=== PATIENT | male | born 1950 | race Caucasian/White ===

== ENCOUNTER 2018-02-28 05:55 | Day surgery (SDC) | payer MEDICARE, OTHER ==
[2018-02-27 14:27] LABS: HEMATOCRIT 46.4 % (42.0-54.0); HEMOGLOBIN 16.6 g/dL (13.5-17.5); MCH 31.7 pg (26.0-34.0); MCHC 35.8 g/dL (31.0-37.0); MCV 88.7 fL (80.0-100.0); MEAN PLATELET VOLUME 10.4 fL (7.4-10.4); RBC 5.23 10x6/uL (4.20-6.10); RDW 12.5 % (11.5-14.5); WBC 7.7 10x3/uL (4.8-10.8)
[2018-02-27 14:36] LABS: CALC OSMOLALITY 280 mosm/kg (275-300); CALCIUM 9.3 mg/dL (8.5-10.1); CHLORIDE - SERUM 104 mmol/L (98-107); GLUCOSE 107 mg/dL (74-106); POTASSIUM - SERUM 3.5 mmol/L (3.5-5.1); SODIUM 140 mmol/L (136-145); UREA NITROGEN 19 mg/dL (7-18); eGFR NON AFRICAN AMERICAN 79 mL/min (90-120)
[~2018-02-28] VITALS: Ht 185.4 cm; Wt 96.2 kg
--- NOTE | ~2018-02-28 | OP ---
PATIENT NAME: ALEKSANDER ENNIS MEDICAL RECORD: [id number] :50 LOCATION:[facility] ADMISSION DATE: SURGEON: JESUS STALLWORTH MD DATE OF OPERATION: 02/28/2018 PREOPERATIVE DIAGNOSES: 1. Left inguinal hernia. 2. Hypertension. 3. Benign prostatic hypertrophy. 4. Hyperlipidemia. 5. Nicotine dependence. POSTOPERATIVE DIAGNOSES: 1. Left inguinal hernia. 2. Hypertension. 3. Benign prostatic hypertrophy. 4. Hyperlipidemia. 5. Nicotine dependence. PROCEDURE: Left inguinal hernia repair with medium PHS mesh. SURGEON: Jesus Stallworth MD REPORT OF PROCEDURE: The patient's left groin was prepped and draped in sterile fashion. An oblique incision was made above the inguinal ligament. Electrocautery was used to dissect through subcutaneous tissues to the external oblique fascia. This fascia was opened up to the external ring using electrocautery. The ilioinguinal nerve was found and high ligated. We then came around the spermatic cord and placed a [place] around it. The patient had a large cord lipoma, which was dissected free from the spermatic cord and high ligated with a 2-0 silk. The patient also had an indirect hernia defect. The hernia sac was dissected from the spermatic cord and placed back in the abdominal cavity. The patient also had a lot of laxity to the inguinal floor, but no distinct hernia was visualized. An opening was made in the inguinal floor and the preperitoneal space of Retzius was opened up in all directions. A medium PHS mesh was inserted and sutured down on all 4 sides using multiple interrupted 0 Vicryls. The wound was then irrigated out with normal saline. The subcutaneous tissues were infused with a total of 10 mL of 0.25% Marcaine with epinephrine. The external oblique fascia was closed with running 2-0 Vicryl, Remigio's was closed with interrupted 3-0 Vicryl and the skin was closed with running subcutaneous 5-0 Monocryl. COMPLICATIONS: None. CONDITION: Stable. ANESTHESIA: General endotracheal and local. BLOOD LOSS: Minimal. TRANSINT:[id number] Voice Confirmation ID: [id number] DOCUMENT ID: [id number] OPERATIVE REPORT [id number] RAYMONALEKSANDER DIAMOND JESUS STALLWORTH MD at 1309 CC: [place] [id number] DICTATION DATE: 02/28/18 0856 [employer]: 02/28/18 1114 [facility] [place] 02/28/[address] [facility] [address] [facility] [place], [facility]
[~2018-02-28 05:55] MED LIST: BAYER CHEWABLE81 MG PO; CENTRUM SILVER1 TA1 PO; CO Q-10100 MG PO; COZAAR100 MG PO; HYDROCHLOROTHIA25 MG PO; LIPITOR20 MG PO; NORVASC10 MG PO
[2018-02-28 06:20] VITALS: BP 174/85; Ht 185.4 cm; Wt 96.2 kg
[2018-02-28] MEDS ORDERED: HYDROCODONE-APA1 TAB PO (08:51)
== END 2018-02-28 11:05 | disposition home or self-care (01) ==
LOC: D.OPS 05:55 → D.PAN 11:30
PROVIDERS: Anesthesiology
DX: K40.90 Unilateral inguinal hernia, without obstruction or gangrene, not specified as recurrent (principal); I10 Essential (primary) hypertension; N40.0 Benign prostatic hyperplasia without lower urinary tract symptoms; E78.5 Hyperlipidemia, unspecified; F17.200 Nicotine dependence, unspecified, uncomplicated; Z01.812 Encounter for preprocedural laboratory examination